=== PATIENT | male | born 1935 | race Caucasian/White ===

== ENCOUNTER 2018-02-02 09:57 | Outpatient (CLI) | payer OTHER ==
[2018-02-02] VITALS (22 sets, daily range): BP systolic 66–132; BP diastolic 40–76
[~2018-02-02 09:57] MED LIST: ASPI-611 PO; ATOR10TA87 PO; CARB1TAB23 PO; CITA-278 PO; ERGO400C PO; FLO0.4C PO; FURO80TA87 PO; IPRA4AER IH; LISI2.5T2 PO; METO-539 PO; POTA20TA19 PO; VITA-67 PO; VITA400C65 PO; VITC500T PO
== END 2018-02-02 23:59 | disposition home or self-care (01) ==
LOC: CARD DIAG 09:57
PROVIDERS: ATTEND Internal Medicine Cardiovascular Disease
DX: R42 Dizziness and giddiness (principal)
CPT/HCPCS: 93660

== ENCOUNTER 2018-08-03 14:00 | Outpatient (CLI) | payer OTHER | END 2018-08-03 23:59 | disposition home or self-care (01) | LOC: CARD DIAG 14:00 | PROVIDERS: ATTEND Internal Medicine Cardiovascular Disease | DX: I08.1 Rheumatic disorders of both mitral and tricuspid valves (principal); I10 Essential (primary) hypertension; J44.9 Chronic obstructive pulmonary disease, unspecified; Z95.1 Presence of aortocoronary bypass graft; Z79.82 Long term (current) use of aspirin; Z87.891 Personal history of nicotine dependence | CPT/HCPCS: 93306 ==

== ENCOUNTER 2018-11-10 11:15 | Day surgery (SDC) | payer OTHER ==
[2018-11-10] VITALS (7 sets, daily range): BP systolic 107–149; BP diastolic 59–85
[~2018-11-10] VITALS: Ht 185.4 cm; Wt 79.6 kg
[~2018-11-10 11:15] MED LIST changes: -CITA-278 PO; +CITA20TA28 PO
[2018-11-10] MEDS ORDERED: LIDOcaine 1% 30ml preserv. free vial SQ STA (11:54)
[2018-11-10] MEDS ORDERED: CARB1TAB42 PO (12:06)
[2018-11-10] MEDS ORDERED: normal saline 1000ml 1,000 ML IV SCH (12:30)
[2018-11-10] MEDS ORDERED: acetaminophen 325mg tablet PO PRN (15:15)
== END 2018-11-10 15:40 | disposition home or self-care (01) ==
LOC: SSTAY O 11:15
PROVIDERS: ATTEND Radiology Diagnostic Radiology
DX: C77.4 Secondary and unspecified malignant neoplasm of inguinal and lower limb lymph nodes (principal); C67.9 Malignant neoplasm of bladder, unspecified; I10 Essential (primary) hypertension; I25.10 Atherosclerotic heart disease of native coronary artery without angina pectoris; G20 Parkinson's disease; Z98.890 Other specified postprocedural states; Z88.2 Allergy status to sulfonamides; Z79.82 Long term (current) use of aspirin; Z79.899 Other long term (current) drug therapy; Z85.46 Personal history of malignant neoplasm of prostate; Z83.6 Family history of other diseases of the respiratory system; Z84.89 Family history of other specified conditions
CPT/HCPCS: 38505; 76942; J7030